=== PATIENT | male | born 1950 | race Caucasian/White ===

== ENCOUNTER 2023-03-06 08:50 | Inpatient (IN) | payer MEDICARE ==
[~2023-03-06] VITALS: Ht 175.3 cm; Wt 82.1 kg
[~2023-03-06 08:50] MED LIST: LOMOTIL TABLET1 EACH PO; ONDANSETRON HCL4 MG PO
--- OUTSIDE RECORDS SUMMARY | 2023-03-06 08:56 | XMS ---
PreManage Notification: YAHIR BLAIR Security Alterations Supervisor Events No recent Security Events currently on file CRITERIA MET - [facility] - 2 Visits in 30 Days CARE PROVIDERS YVONNE LAMBERT Physician Test Engineer Current PHONE: [phone] Silvana has no Care Guidelines for this patient. Ricki VISIT COUNT (12 MO.) 2 [facility] TOTAL 2 NOTE: Visits indicate total known visits. ED/UCC VISIT TRACKING (12 MO.) 03/06/2023 08:51 [facility] [place] TYPE: Emergency COMPLAINT: - ALTERED LOC 03/04/2023 17:29 [facility] [place] TYPE: Emergency COMPLAINT: - DIARRHEA INPATIENT VISIT TRACKING (12 MO.) No inpatient visits to display in this time frame [email or web address]
[2023-03-06 13:58] VITALS: BP 146/70
--- NOTE | 2023-03-06 14:36 | NUR ---
RECEIVED REPORT IN ED FROM [facility] TOWING PILOT AND RN ALDO FOR PT IN ROOM 6 AT 1120 HOURS (ED). PT TRANSFERRED TO ROOM 110 VIA ER STRETCHER BY 2-PERSONS (RN AND [facility] STUDENT) AT 1156 HOURS, ON 3L O2 VIA NC. PT ABLE TO STAND AND TRANSFER WITH SBA ONLY FROM STRETCHER TO BED WITHOUT DIFFICULTY. ASSESSMENT PERFORMED, ADMISSION DONE. MEAL TRAY AT BEDSIDE, PT ABLE TO EAT ABOUT 10%. PT UP TO TOILET, USED URINAL IN BATHROOM, VOIDED 275ML DARK CLEAR URINE. PT INITIALLY REPORTS LIGHTHEADEDNESS UPON STANDING BUT LATER STATES HE DOESN'T HAVE ANY. HE STATES HE GOT SICK THIS LAST SATURDAY AND WAS TAKEN TO URGENT CARE WHERE THEY GAVE HIM ABX AND PAIN PILLS. HE FEELS LIKE HE GOT WORSE AFTER THAT AND WAS BROUGHT IN BY EMS TODAY FOR CONFUSION AND WEAKNESS AND SLOW RESPONSE. PT LIVES AT HOME ALONE IN [place]. HIS SON LIVES IN [place]. HIS SISTER IS HIS MAIN POINT OF CONTACT AND SHE LIVES IN [place]. PT STATES HIS A COUPLE OF YEARS AGO. HE DENIES ANY ABNORMAL MED HX ASIDE FROM [facility] FOR WHICH HE HAS NOT SEEN A PROVIDER ABOUT AND CONTROLS IT WITH DIET. PT'S SON, WHILE ON THE PHONE, ADVISED THAT MAYBE A YEAR AGO, THE PT WAS SEEN AT [facility] AND WAS GIVEN IV ANTIBIOTICS WHEN HE BEGAN TO EXPERIENCE A REACTION. RECORDS WILL BE REQUESTED FROM [facility]. PT IS ON 3L O2 VIA NC TO MAINTAIN SATS GREATER THAN 89% AND STATES HE DOES NOT USE O2 AT HOME OR USE CPAP/BIPAP. FAMILY ON THE PHONE ADVISED THEY WILL BE IN TOMORROW TO VISIT AND THEIR NUMBERS ARE AVAIALBLE IF NEEDED. PT IS SUPINE IN BED, HOB AND KNEES ELEVATED FOR COMFORT, CALL LIGHT, CELL PHONE, AND BEDSIDE TABLE WITHIN REACH. PT EXPRESSED CONCERN ABOUT RECEIVING IV ABX HERE AND WAS ADVISED THAT THE PHYSICIAN IS AWARE AND ENCOURAGED TO USE THE CALL LIGHT IF HE NOTICES ANY CONCERNING SYMPTOMS.
--- NOTE | 2023-03-06 15:00 | NUR ---
Spoke with pt and he states he is retired and lives in [place] in a house a 3 steps. He does not have issues getting in or out of his home. He is a of 2 years. Pt's son lives in [place] and will assist him if needed. He does not use any DME. He cooks, cleans, shops for himself. He was in [place] visit when he became ill. He came to the ER on the 15 and was started on antibiotics. He believes this is what caused his pnuemonia. He plans on returning home to [place] when he is cleared medically. He does not think he has a pcp,but states he sees a Dr. at a Clinic in [place]. Pt denies needs and plans on dc on dc to home. He will call his son to take him home if he is not feeling well.
[2023-03-06 15:13] VITALS: BP 122/65
--- NOTE | 2023-03-06 15:32 | NUR ---
Called [facility] and [facility] in [place]. Both deny seeing this pt. They do not have any openings for follow up visits from a hospital until mid to end of April. There is another office in [place], Dr. Bourgeois office. They are closed today. Will call tomorrow to see if they have this pt.
--- NOTE | 2023-03-06 16:42 | NUR ---
SPOKE WITH PATIENT'S SISTER. PATIENT GIVES OK TO PROVIDE HER WITH INFORMATION. SISTER, KAYLEEN, STATES PATIENT HAS A HISTORY OF DRINKING ALCOHOL, THOUGH UNSURE OF [facility]. DR. MOE NOTIFED. MONITOR FOR WITHDRAWAL. DR. MOE STATES PATIENT INFORMED HIM IT HAS BEEN 1 WEEK SINCE LAST DRINK. PATIENT USES CALL LIGHT TO REQUEST BLANKETS. OXYGEN OFF. O2 SATS 86% ON ROOM AIR. OXYGEN REPLACED AT 3L/MIN PER NC. AFTER A COUPLE MINUTES, SATS INCREASE TO 90%.
--- NOTE | 2023-03-06 18:06 | NUR ---
PT USES CALL LIGHT APPROPRIATELY TO CALL FOR ASSISTANCE TO THE BATHROOM. PT NEEDS VERBAL CUES AND LINE/TUBE MANAGEMENT BUT IS ABLE TO AMBULATE WITHOUT ISSUES. VOIDED 300ML MEG COLORED, CLEAR, URINE INTO MALE URINAL. NO SOB OR C/O PAIN WITH AMBULATION. PT RECEIVING 500ML FLUID BOLUS OF LR PER EMAR AND RECEIVED UNISYN ABX IV. PT ASSISTED BACK TO BED, SCDS PLACED AND FUNCTIONING, BEDSIDE TABLE, CELL PHONE, AND CALL LIGHT WITHIN REACH. DENIES FURTHER NEEDS AT THIS TIME.
--- NOTE | 2023-03-06 18:09 | NUR ---
PT EXPRESSED CONCERN REGARDING THE FLUID BOLUS AND IV ABX HE RECEIVED. HE STATES HIS "CHEST FEELS FULL" AND COMMENTED THAT HE DOESN'T "WANT TO DROWN". PT SEEMS TO BE VERY ANXIOUS AND WORRIES ABOUT HAVING A REACTION TO IV ABX. REASSURED PT THAT WE ARE MONITORING HIM AND ENCOURAGED HIM TO CONTINUE USING HIS CALL LIGHT IF HE NOTICES ANY CHANGES OR ANYTHING UNUSUAL FOR HIMSELF. PT'S LUNGS AND AIRWAY WERE CLEAR, NO DYSPNEA, NO SOB, NO SWELLING NOTED ABOUT THE PT'S FACE, THROAT, OR ORAL CAVITY/TONGUE. CALL LIGHT AND BEDSIDE TABLE IN REACH, 2 OF 4 SIDE RAILS UP. PT REQUESTED SCDS STAY OFF FOR NOW. MEAL TRAY AT BEDSIDE, PT EATING DINNER. DENIES FURTHER NEEDS AT THIS TIME.
[2023-03-06 18:21] VITALS: BP 139/63
--- NOTE | 2023-03-06 18:22 | NUR ---
NEW BAG OF IV FLUIDS HUNG ON TUBING THAT IS GOOD UNTIL SATURDAY. VS DONE. PT IS COMPLAINING OF A HEADACHE IN THE RIGHT QUAKER BUT THINKS IT IS BECAUSE HE IS HAVING VISUAL CHANGES. HE STATES HE HAD CATARACT SURGERY A YEAR AGO AND HE HAD GREAT VISION THEN, NO GLASSES OR CONTACTS. SINCE HE GOT SICK OVER THIS LAST WEEKEND, HE HAS STARTED TO HAVE BLURRED VISION. PT WAS GIVEN A HOT PACK FOR HIS HEAD AND ADVISED WE WILL CHECK HIS EMAR FOR ANY MEDICATION FOR PAIN IF REQUESTED. HE RATES HIS HEADACHE A 9 OUT OF 10, INTERMITTENT. CALL LIGHT IN REACH.
--- NOTE | 2023-03-06 19:30 | NUR ---
REPORT RECEIVED FROM DAY SHIFT RN. PT RESTING IN BED. NO DISTRESS NOTED. PT ON 3 L NC OF O2. SATING IN LOW 90'S. SAFETY PRECAUTIONS MAINTAINED. CALL LIGHT THELMA GUARDADO. JANA CONTINUE TO MONITOR.
--- NOTE | 2023-03-06 20:15 | NUR ---
BED ALARM GOING OFF, pt FOUND AWAKE AND SITTING ON EDGE OF BED ATTEMPTING TO GET OOB TO GO TO THE BATHROOM. pt EDUCATED ON USING CALL LIGHT, pt UP SBA TO BATHROOM. pt VERBALIZED INTERST TO HAVE BM, UNSUCCESSFUL. pt BACK IN BED, ALARM RESUMED. pt STATES, "I'M HOT THEN I GET COLD, THEN HOT AGAIN". TEMP CHECKED, RESULT 97.9. 3LNC REMAINS IN PLACE, NO DISTRESS NOTED. CALL LIGHT IN REACH. PRIMARY RN UPDATED AND PULLING EVENING MEDS NOW.
--- NOTE | 2023-03-06 20:25 | NUR ---
PT ASSESSED AND MEDICATIONS GIVEN. PT STATED THAT THEY WERE ANXIOUS ABOUT BEING IN THE HOSPITAL. REASSURANCE EDUCATION DONE ABOUT PLAN OF CARE. CIWA DONE AND HAD A SCORE OF 2. IVF INFUSING. IV ABX GIVEN PER ORDER. IV SITE INTACT. VSS. I&O DONE. SAFETY PRECAUTIONS MAINTAINED. CALL LIGHT WITHIN REACH. WILL CONTINUE TO MONITOR.
[2023-03-06 20:26] VITALS: BP 124/60
--- NOTE | 2023-03-06 22:00 | NUR ---
CALL LIGHT ANSWERED. OXYGEN TUBING ADJUSTED, REDNESS BEHIND RIGHT EAR FROM TUBING. 3L OXYGEN BY NC IN PLACE. SBA TO STAND FOR VOID AT SIDE OF BED IN URINAL. pt REQUESTING TO KEEP JEANS ON. BACK IN BED. IVF INFUSING WNL. CALL LIGHT IN REACH. BED ALARM ON.
--- NOTE | 2023-03-07 00:11 | NUR ---
BED ALARM GOING OFF, pt UP SBA TO BATHROOM TO VOID AND BACK TO BED, STEADY ON FEET. VOIDED VIA URINAL, BED ALARM RESUMED AND CALL LIGHT IN REACH. 3LNC REMAISN IN PLACE, pt REPROTS PAIN R/T HEADACHE. COOL RAG APPLIED. PRIMARY RN UPDATED.
[2023-03-07 01:05] VITALS: BP 134/63
--- NOTE | 2023-03-07 01:40 | NUR ---
PHONE AT RN STATION ANSWERED, pt's SON YAHIR ON PHONE AND REPORTS THAT THE pt CALLED HIM AND MADE STATEMENTS SUCH "THEY'RE TRYING TO KILL ME" AND THAT THE pt REPORTS 10/10 PAIN R/T HEADACHE, RECENTLY GIVEN PRN TYLENOL BY PRIMARY RN. pt's SON REASSURED THAT THE pt WAS GIVEN TYLENOL AND IF HEADACHE CONTINUES, MD CAN BE CALLED FOR SOMETHING FOR PAIN AND/OR ANXIETY. SON STATES, "CAN'T YOU GIVE HIM SOME ATIVAN OR SOMETHING TO RELAX". THIS RN IN ROOM TO DISCUSS HEADACHE WITH pt AND THAT THE NURSE IS CALLING THE MD TO ASK FOR ADDITIONAL PAIN MEDS. pt EDUCATED THAT STAFF MUST GIVE WHAT IS AVAILABLE (THE TYLENOL) FIRST BEFORE CALLING MD. BED ALARM ON.PRIMARY RN ON PHONE WITH .
--- NOTE | 2023-03-07 01:55 | NUR ---
PT STATED THAT THEY HAVE A BAD NOYOLA. PRN TYLENOL GIVEN. PT STATED THAT IT WASN'T WORKING AND WANTED SOMETHING ELSE. PT CALLED THEIR SON, IMER, WHO LIVES IN [place] AND STATED THAT WE WERE TRYING TO KILL HIM. SONIMER CALLED AND TALKED TO PRIMARY RN AND SYSTEM SUPPORT ADMINISTRATOR VIA PHONE AND ASKED THAT WE CALL AND GET SOMETHING ADDITIONAL FOR PAIN. DR MOE CALLED AND NORDAMION AND SERORINA ORDERED. PT CALLED SONIMER, AGAIN STATING WE WERE NOT DOING ANYTHING FOR HIM. PT EDUCATED AND INFROMED THAT WE WERE IN TOUCH WITH THE DOCTOR AND GETTING SOMETHING FOR THEM. PT IS REFUSING OTHER INTERVENTIONS FOR THEIR NOYOLA AT THIS TIME. WAITING FOR MEDICATIONS TO BE VERIFIED. WILL CONTINUE TO MONITOR.
--- NOTE | 2023-03-07 02:00 | NUR ---
pt AWAKE AND RESTING IN BED, CONTINUES TO FEEL ANXIOUS AND REPORT HEADACHE. pt NOW ON PHONE WITH SON IMER, IMER ASKING ABOUT WHAT TYPE OF PNA pt HAS, SON EDUCATED pt DIAGNOSED WITH ASPIRATION PNA. pt REPORTS HE [place] AND WAS GIVEN NAUSEA MEDS AND STATES, "I HAVEN'T FELT THE SAME SINCE". SON STATES, "WELL HE WAS IN THE PASTURE CLEANING THE PEN, MAYBE HE BREATHED IN SOME DUST OR POOP". pt AND SON EDUCATED ASPIRATION PNA LIKELY OCCURS WHEN EATING OR DRINKING. ANSWERED pt's SON'S QUESTIONS REGARDING TREATMENT AND POC. pt ASKED IF HE HAS A PCP, pt DENIES INTEREST AND STATES, "OH I DON'T WANT THAT". pt EDUCATED THAT PCP CAN HELP WITH OVERALL HEALTH AND HELP WITH STRATEGIES PREVENTING ASPIRATION IN THE FUTURE. PRIMARY RN NOW IN ROOM TO GIVEN ADDITIONAL PAIN AND ANXIETY MEDICATION.
--- NOTE | 2023-03-07 02:13 | NUR ---
PRIMARY RN JUST GAVE PT THE ORDERED SEROQUEL AND NORCO. PT'S SON, IMER, ON THE PHONE WITH PT AND STATED THAT THE PT STATED THAT THE DOCTOR INFORMED HIM THAT HE WAS ABOUT TO MEET HIS MAKER. RN ASSURED SON AND PT THAT THIS WAS FALSE INFORMATION AND THAT THE PT NEEDED TO SEE A PRIMARY DOCTOR ( THE PT STATED THAT THEY DID NOT WANT TO SEE ONE) TO ADDRESS SOME OF HIS HEALTH ISSUES AND CONCERNS. SON, IMER, VERBALIZED UNDERSTANDING.
--- NOTE | 2023-03-07 03:08 | NUR ---
PT RESTING WITH EYES CLOSED. NO DISTRESS NOTED. PT'S SON, IMER, CALLED ANF UPDATED ON PT'S STATUS. SAFETY PRECAUTIONS MAINTAINED. CALL LIGHT WITHIN REACH. WILL CONTINUE TO MONITOR.
[2023-03-07 05:21] VITALS: BP 142/62
--- NOTE | 2023-03-07 05:40 | NUR ---
pt SLEEPING, AWAKENS TO VOICE FOR LAB. pt DROWSY. 1PA TO STAND AT SIDE OF BED FOR VOID IN URINAL. IVF INFUSING WNL. pt BACK IN BED. ICE WATER REFILLED AND IN REACH. CALL LIGHT NEXT TO pt. 3L OXYGEN IN PLACE. SPO2 WNL. VSS. BED ALARM ON. pt COOPERATIVE WITH CARES.
--- NOTE | 2023-03-07 06:31 | NUR ---
PT WAS RESTLESS AND ANXIOUS FOR MOST OF THE SHIFT. PLEASE SEE PREVIOUS NOTES FOR UPDATES ON PT AND FAMILY INTERACTION THROUGHOUT SHIFT. PT ABLE TO AMBULATE TO BATHROOM WITH CONTACT ASSISTENCE. O2 AT 3L NC REMAINED APPLIED TO PT THROUGHOUT SHIFT. VSS. IVF INFUSING PER ORDER. SAFETY PRECAUTIONS MAINTAINED. CALL LIGHT WITHIN REACH. WILL CONTINUE TO MONITOR.
--- NOTE | 2023-03-07 06:54 | NUR ---
pt's SISTER KAYLEEN BLAIR CALLED AND ASKED FOR pt UPDATE. pt ASKED IF UPDATE COULD BE PROVIDED, pt OKAY'ED. PRIMARY RN SPEAKING WITH pt's SISTER NOW VIA PHONE.
--- NOTE | 2023-03-07 07:00 | NUR ---
PT'S SISTER, KAYLEEN, CALLED FOR AN UPDATE ON PT. PT GAVE PERMISSION FOR RN TO TALK TO KAYLEEN AND GIVE UPDATES. RN UPDATED KAYLEEN ON SHIFT EVENTS. KAYLEEN VERBALIZED UNDERSTANDING.
[2023-03-07 07:59] VITALS: BP 132/65
--- NOTE | 2023-03-07 08:01 | NUR ---
RECEIVED REPORT FROM NOC SHIFT RN. PT SUPINE IN BED, HOB ELEVATED, RESTING WITH EYES OPEN. PT REPORTS HEADACHED 10 OUT OF 10, STATES THAT HE STILL DOESN'T FEEL GOOD. PT'S FAMILY SHOULD BE ARRIVING TODAY TO VISIT. UNASYN IV HANGING AND STARTED. PT REQUESTS A NEW WATER CUP HE THINKS HIS IS LEAKING. PERSONAL BELONGINGS, BEDSIDE TABLE, AND CALL LIGHT IN REACH. NO OTHER NEEDS AT THIS TIME.
--- NOTE | 2023-03-07 08:40 | NUR ---
Pt. Feikes head, "no",when asked if he has any needs. Pt making a phone call.
--- NOTE | 2023-03-07 09:18 | NUR ---
PT IS NOW ON ACCUCHECKS AND SLIDING SCALE. BREAKFAST TRAY AT BEDSIDE. PT CBG IS 220, HE REFUSED 3 UNITS OF INSULIN, STATING HE DOESN'T NEED IT AT HOME BECAUSE HE CONTROLS HIS DIET AND DOESN'T EAT SUGARY STUFF OR A LOT OF CARBS, AND HE SKIPS BREAKFAST. PT WAS ENCOURAGED TO GET OUT OF BED TODAY AND MOVE AROUND/TAKE WALKS WITH STAFF TO ENCOURAGE AMBULATION AND HEALING. PT VERBALIZED UNDERSTANDING. PT WAS GIVEN HIS 0900 PO ABX, AND 500MG ACETAMINOPHEN FOR 10/10 HEADACHE IN THE RIGHT PENTECOSTAL. [facility] MICROFILMING DOCUMENT PREPARER, CARRIE, BROUGHT THE PATIENT SOME COLD GREEN TEA AT HIS REQUEST, INSTEAD OF HIS COFFEE WITH BREAKFAST. CALL LIGHT IN REACH, PT DENIES FURTHER NEEDS AT THIS TIME.
[2023-03-07 09:55] VITALS: BP 130/64
--- NOTE | 2023-03-07 10:41 | NUR ---
Pt's O2 was 86% on 3 liters nasal cannula. This student nurse spoke with charge nurse Adrienne who recommended increasing his O2 to 4 lpm which was done. See vitals for response.
--- NOTE | 2023-03-07 11:45 | NUR ---
MED REC COMPLETE
--- NOTE | 2023-03-07 11:52 | NUR ---
HOURLY ROUNDING ON PT. RESTING IN BED WITH EYES CLOSED, PT'S SON AT BEDSIDE. ANSWERED QUESTIONS AND ENCOURAGED PT'S SON AND PT TO DISCUSS CONCERNS WITH DR. MOE WHEN HE COMES IN. PT REPORTS HE STILL HAS PAIN 10 OUT OF 10 IN HIS RIGHT YARSANI, COOL COMPRESS GIVEN. SON EXPRESSED CONCERN ABOUT THE NEED FOR AN MRI OR OTHER DIAGNOSTIC IMAGING TO LOOK FOR ANEURYSMS. YVONNE COKER ASSISTED PT TO CHAIR FROM BED, STATES HE FEELS WARM. CBG 344. CALL LIGHT IN REACH.
--- NOTE | 2023-03-07 12:36 | NUR ---
PT UP IN CHAIR, SON AT BEDSIDE. MEAL TRAY IN ROOM. PT ADVISED THAT HIS CBG WAS 344 THIS TIME AND HE STATED HE DOES NOT WANT INSULIN STILL BUT THAT HE WILL GO FOR WALKS TO HELP LOWER HIS BLOOD GLUCOSE. THE PT WAS ON AND HAD A REGULAR DIET TRAY THIS MORNING FOR BREAKFAST BUT IS NOW, FOR LUNCH, ON A 60G CARB DIET. PT WAS RE-EDUCATED ON THE IMPORTANCE OF FOLLOWING INSTRUCTIONS TO USE THE IS AND ACAPELLA, STAYING HYDRATED, AND GETTING PLENTY OF SLEEP. PT VERBALIZED UNDERSTANDING. PT EXPRESSED DESIRE TO AMBULATE THE HALLWAYS TO HELP LOWER HIS CBG. PORTABLE O2 TAKEN WITH PT BY RN, PT TOLERATED WALK WELL, AND WENT BACK TO HIS CHAIR, LLE ON PILLOW. CALL LIGHT IN REACH
--- NOTE | 2023-03-07 12:57 | NUR ---
DR. MOE IN WITH PT AT 1243, SON HAD STEPPED OUT TO ENTERPRISE APPLICATION ARCHITECT PT'S MOTHER. PT UP IN CHAIR. PT WAS ADVISED THAT HIS BLURRY VISION MAY BE FROM HIS DIABETES AND WAS ENCOURAGED TO TAKE INSULIN IF HE IS WILLING, WHILE HE IS IN THE HOSPITAL. PT WOULD LIKE TO SPEAK WITH HIS SON ABOUT IT FIRST. WILL ADVISE HIS SON OF DR. MOE'S ANSWERS REGARDING HEADACHE (POSSIBLE SINUS INFECTION). PT LEGS ELEVATED IN CHAIR FOR COMFORT. PT ATE APPROX 10% OF HIS LUNCH AND COMPLAINED THAT IT HAS TOO MANY CARBS FOR HIS LIKING, AND THAT HE SOMETIMES EATS ONLY 20G OF CARBS A DAY. CALL LIGHT IN REACH, DENIES FURTHER NEEDS AT THIS TIME. PER DR. MOE, WILL S/L PT AFTER THIS BAG OF FLUIDS RUNS THROUGH.
--- NOTE | 2023-03-07 14:00 | NUR ---
BRUSH MAKER MACHINE UTE. NOTIFIES THIS NURSE PATIENT IS BLEEDING FROM IV SITE. UPON ENTERING ROOM, PATIENT AMBULATING WITHOUT ASSISTANCE, BLOOD DROPLETS NOTED ON THE FLOOR. IV CATHETER REMAINS INTACT, DRESSING INTACT. APPEARS PATIENT PULLED IV TUBING APART AND WAS BLEEDING THROUGH TUBING ONTO FLOOR. NO OXYGEN ON AT THIS TIME. STATES HE NEEDS TO URINATE. OXYGEN REPLACED, AMBULATES TO BATHROOM WITH BRUSH MAKER MACHINE. IV TUBING DISCONNECTED AND SITE FLUSHED WITH 10 ML NS. NEW TUBING CONNECTED TO IVF. PATIENT RETURNS TO RECLINER, CHAIR ALARM ACTIVATED. IV FLUIDS RESTARTED.
--- NOTE | 2023-03-07 14:31 | NUR ---
M/S STAFF IN CARING FOR PT AT THIS TIME. WILL CHECK BACK
--- NOTE | 2023-03-07 15:41 | NUR ---
AMBULATED IN HALLWAY WITH OXYGEN. O2 SATS DOWN TO 89% ON 4L/MIN PER NC. RT WITH PATIENT WELL. OXYGEN INCREASED TO 5L/MIN PER NC WITH AMBULATION. RETURNS TO ROOM TO BED. SON REQUESTS PATIENT HAVE SUDAFED, INFORMED DOSE WAS GIVEN AN HOUR AGO AND MAY BE GIVEN 6 HOURS FROM THAT DOSE. VERBALIZE UNDERSTANDING.
[2023-03-07 16:07] VITALS: BP 120/56
--- NOTE | 2023-03-07 18:54 | NUR ---
PT HAS BEEN UP IN THE CHAIR FOR MOST OF THIS SHIFT. HE ATE ABOUT 50% OF HIS BREAKFAST, AND ABOUT 25% OF HIS LUNCH. HE C/O THE AMOUNT OF CARBS IN HIS MEALS AND HAS BEEN REFUSING HIS SLIDING SCALE INSULIN STATING THAT "THAT STUFF KILLS YOU". HE HAS BEEN REQUESTING TO USE HIS PERSONAL LANCETS AND WAS TOLD THAT WE MUST USE OUR MONITORS. HE REPORTED PAIN 10 OUT OF 10 THIS MORNING IN THE FORM OF A HEADACHE ON THE RIGHT SIDE OF HIS HEAD (LATER DETERMINED, BY DR. MOE, TO BE A SINUS INFECTION) AND WAS GIVEN TYLENOL AND 30MG PRN SUDAFED. 2 HOURS LATER HE REPORTED HIS PAIN "I DON'T KNOW, A 9?" WHEN ASKED IF IT WAS STILL A 9, HE SAID, "I DON'T KNOW, I DON'T REALLY FEEL ANY PAIN RIGHT NOW". I CONFIRMED, "YOU DON'T HAVE ANY PAIN RIGHT NOW?" AND HE SAID, "NO." HIS SON AND MOTHER HAVE BEEN IN HIS ROOM FOR MOST OF THE DAY AND HAVE BEEN ENCOURAGING HIM TO USE HIS INCENTIVE SPIROMETER. HE HAS BEEN AMBULATING THE HALLWAYS WITH 1-PERSON ASSIST X2 TODAY AND HIS O2 SATS RANGE (WHILE WALKING WITH O2 AT 4LPM) FROM 89-92%. HE IS ON HUMIDIFIED O2 NOW PER DR. MOE, FOR CONGESTION. PT STILL SEEMS PRETTY ANXIOUS AND WAS ENCOURAGED TO PARTICIPATE IN HIS HEALING BY USING THE IS, AMBULATING, USING THE ACAPELLA, AND FOLLOWING DIRECTIONS (EATING WELL, HYDRATING, GETTING SLEEP, RATING PAIN) IN ORDER TO BE DISCHARGED SOON HE CAN BE. PT HAS BEEN SLEEPING FOR THE LAST 3 HOURS.
--- NOTE | 2023-03-07 19:15 | NUR ---
REPORT RECEIVED FROM DODIE BREEN. PT RESTING IN BED WITH EYES CLOSED RR EVEN AND UNLABORED. NO NEEDS IDENTIFIED AT THIS TIME. CALL LIGHT IN REACH. BED ALARM ON.
--- NOTE | 2023-03-07 20:39 | NUR ---
SON IMER IN ROOM AND ASSISTED WITH MAKING THE BED HE PLANS ON STAYING THE NIGHT WITH HIS FATHER. POC DISCUSSED WITH IMER, PRIMARY RN RENA ALSO IN ROOM COMPLETING MED PASS. NO ADDITIONAL NEEDS OR CONCERNS VERBALIZED. CALL LIGHT IN REACH.
[2023-03-07 20:45] VITALS: BP 141/75
--- NOTE | 2023-03-07 20:56 | NUR ---
IN TO ADMINISTER MEDICAITONS, SEE MAR. PT TOLERATED SUB-Q INJECTION WELL. PT RESTING IN BED AND RESPONDS WHEN ADDRESSED. SON IN ROOM TO VISIT. VITLAS AND I&Os COMPLETE. ASSESSMENT COMPLETE. LUNG SOUNDS CLEAR IN RUL, ELIZABETH AND LLL. DIMINISHED IN RLL. BOWEL TONES ACTIVE. PT DENIES PAIN AT THIS TIME. PT REQUESTING MILK. MILK PROVIDED. LOTION TO PTs BACK PT REPORTING BACK BEING ITCHY. SON REQUESTING CHAP STICK FOR PT. WILL RETURN WITH CHAP STICK. PT REQUESTING WATER, WILL RETRUN WITH WATER. PT IN BED WITH BED ALARM ON. CALL LIGHT IN REACH.
--- NOTE | 2023-03-07 21:44 | NUR ---
PT STATES HE HAS A 10/10 NOYOLA, PRESSURE. PAIN MED AND CONGESTION MED PROVIDED. NO OTHER NEEDS AT THIS TIME. SON IN ROOM. CALL LIGHT IN REACH.
--- NOTE | 2023-03-07 22:28 | NUR ---
IN TO ROUND ON PT. YVONNE DUARTE IN ROOM ASSISTING PT WITH TOILETING. PT REPORTING BACK FEELING "ITCHY." PT REQUESTING PRN BENADRYL. WILL CALL
--- NOTE | 2023-03-07 22:31 | NUR ---
Assisted Pt with going to and from the bathroom and using the bathroom. Pt noted red itchy spots on back; notified RN. Repositoned Pt in bed with RN. Refilled Pt's ice pack and water with fresh ice. Call light left in reach; bed alarm on. No other needs expressed by Pt.
--- NOTE | 2023-03-07 22:33 | NUR ---
THIS RN CALLED DR. BURGESS REGARDING PT REQUESTING BENADRYL PTs BACK IS "ITCHY." NEW ORDERS RECEIVED VERIFIED WITH READ BACK. ORDER 25MG BENADRYL PO ONCE. GIVE 12.5MG NOW AND IF NEEDED OKAY TO GIVE OTHER 12.5MG.
--- NOTE | 2023-03-07 22:53 | NUR ---
BENADRYL TABLETS NOT AVAILABLE, ONLY CAPSULES. DR BURGESS UPDATED, PER MD, VERBAL ORDER READ BACK OKAY TO GIVE THE FULL 25MG PO BENADRYL CAPSULE. PRIMARY RN SANDRITA UPDATED.
--- NOTE | 2023-03-07 22:54 | NUR ---
IN TO ADMINISTER BENADRYL, SEE MAR. PT TAKES PO MEDICATION WITH NO ISSUES. PT DENIES ANY OTHER NEEDS AT THIS TIME. CALL LIGHT IN REACH. BED ALARM ON. SON ON COUCH.
--- NOTE | 2023-03-07 23:50 | NUR ---
THIS RN WAS INFORMED PTs SON CAME TO NURSES STATION TO ASK ABOUT PTs HOB BEING LOWERED. THIS RN IN ROOM TO ROUND ON PT. HOB LOWERED. PT REPORTING HEADACHE AND RATING PAIN 10/10. PT REQUESTING PRN PSEUDOEPHEDRINE. PRN PSEUDOEPHEDRINE AND MOTRIN ADMINISTERED, SEE MAR. PT DENIES ANY OTHER NEEDS AT THIS TIME. CALL LIGHT IN REACH. BED ALARM ON. SON IN ROOM. SON AND PT EDUCATED PERSONNEL CONSULTANT LIGHT USE.
--- NOTE | 2023-03-08 01:01 | NUR ---
SON ON COUCH. SON SITS UP WHEN DOOR OPENS. NO NEEDS REPORTED AT THIS TIME. CALL LIGHT IN REACH. BED ALARM ON.
--- NOTE | 2023-03-08 01:15 | NUR ---
SON TO NURSES STATION. SON REPORTS PT IS MOVING AROUND IN BED AND IS "UNCOMFORTABLE." IN WITH YVONNE MCKEON TO BOOST PT IN BED. PT REPOSITIONED. WARM CLOTH PROVIDED FOR PTs EYES. PRN SEROQUEL ADMINISTERED, SEE MAR. PER PT REQUEST. ABX STARTED, SEE MAR. PT DENIES ANY OTHER NEEDS AT THIS TIME. CALL LIGHT IN REACH. BED ALARM ON.
--- NOTE | 2023-03-08 02:11 | NUR ---
IN PUMP ALARMING, RESOLVED. IV ABX COMPLETE. PT SL. PT RESTING IN BED SEMI-FOWLERS. RR EVEN AND UNLABORED. EYES CLOSED. PT ALLOWED TO REST AT THIS TIME. CALL LIGHT IN REACH. NO OTHER NEEDS IDENTIFIED AT THIS TIME. SON ON COUCH. BED ALARM ON.
--- NOTE | 2023-03-08 04:21 | NUR ---
SON ON COUCH. NO NEEDS IDENTIFIED AT THIS TIME. CALL LIGHT IN REACH OF PT. BED ALARM ON.
[2023-03-08 05:45] VITALS: BP 146/72
--- NOTE | 2023-03-08 05:45 | NUR ---
IN BED ALARM ALARMING. PT SITTING ON EDGE OF BED. PT REPORTS TOILETING NEEDS. SBA FROM BED TO RESTROOM AND BACK TO BED. PT HAS SLOW STEADY GAIT. LINENS ON BED CHANGED. NEW GOWN PROVIDED. VITALS AND I&Os COMPLETE. ASSESSMENT COMPLETE. LUNG SOUNDS CLEAR IN RUL AND ELIZABETH. DIMINISHED IN RLL. COARSE IN RLL. BOWEL TONES ACTIVE. HEART RATE TACHYCARDIC. PT DENIES PAIN AT THIS TIME. PT REQUESTING ICE. ICE PROVIDED. PT DENIES ANY OTHER NEEDS AT THIS TIME. CALL LIGHT IN REACH. BED ALARM ON. SON ON COUCH.
[2023-03-08 07:30] VITALS: BP 137/75
--- NOTE | 2023-03-08 08:00 | NUR ---
REPORT RECEIVED FROM NIGHT RN AND PT. CARE RESUMED. PT. C/O SINUS PAIN AND ADMIN. PRN. MED. ON 4L O2 NC AND SP02 IS 92%. SON AT BEDSIDE. ASSESSMENT COMPLETED AND MEDS ADMIN. CALL LIGHT IN REACH.
[2023-03-08 09:53] VITALS: BP 128/67
--- NOTE | 2023-03-08 09:53 | NUR ---
SPOKE TO PATIENT ABOUT THIS DISCHARGE PLAN. PATIENT PLANS TO GO HOME TO [place] WHERE HE LIVES.PATIENT HAS A SON IMER THAT WILL HELP IF NEEDED.
--- NOTE | 2023-03-08 10:56 | NUR ---
STAFF IN WORKING WITH PT, WILL CHECK AGAIN.
[2023-03-08] MEDS ORDERED: REFRESH OPTIVE1 EAC2 OU (11:19)
--- NOTE | 2023-03-08 11:25 | NUR ---
PT. SON BROUGHT PT'S EYE DROPS AND YOGURT. YOGURT LABELED AND IN FRIDGE. EYE DROPS GIVEN TO PHARMACY FOR LABELING.
--- NOTE | 2023-03-08 11:53 | NUR ---
PT. C/O CONTINUED HEADACHE AND ADMIN. PRN MED. WILL CONTINUE TO MONITOR.
[2023-03-08 13:44] VITALS: BP 126/70
--- NOTE | 2023-03-08 13:49 | NUR ---
PT I&O'S TAKEN/DOCUMENTED. WATER REFILLED, PT IN CHAIR, LEGS DANLGED, CALL LIGHT ON ARM REST. NO OTHER NEEDS AT THIS TIME.
--- NOTE | 2023-03-08 14:26 | NUR ---
PT CONCERNED IV SITE "LOOKED DIRTY" UNDER DRESSING. SITE WNL. PT THEN CONCERNED TUBING KINKING. TUBING TAPED DOWN. DENIES FURTHER NEEDS.
[2023-03-08 18:26] VITALS: BP 156/72
--- NOTE | 2023-03-08 19:05 | NUR ---
REPORT RECEIVED FROM DODIE VELAZQUEZ. PT RESTING IN BED LAYING SEMI-FOWLERS. EYES CLOSED. RR EVEN AND UNLABORED. PT AWAKENS WHEN DOOR OPENS. PT DENIES ANY NEEDS AT THIS TIME. CALL LIGHT IN REACH. BED ALARM ON.
--- NOTE | 2023-03-08 19:27 | NUR ---
pt walked to the bathroom, sba, w/o difficulty. this rn remains in room. back in bed. call light in reach. denies further needs.
--- NOTE | 2023-03-08 20:12 | NUR ---
IN TO ROUND ON PT. BG CHECK. PT REFUSES INSULIN. PT REQUESTING TO GO FOR WALK. IV ABX COMPLETE. PT SL. PT GETS UP FROM BED BY SELF AND AMBULATES REDDING. KEESHA RN AMBULATES LAMBERT WITH PT. SON ACCOMPANIES PT. NO OTHER NEEDS FROM THIS RN AT THIS TIME.
[2023-03-08 20:29] VITALS: BP 139/65
--- NOTE | 2023-03-08 20:56 | NUR ---
IN TO ROUND ON PT. DODIE THAO IN [facility] PT ASSISTING PT TO BED. PT REPORTING HEADACHE 07/30. PRN MOTRIN ADMINISTERED, SEE MAR. PT TAKES PO MEDICAITON WITH NO ISSUES. ASSESSMENT COMPLETE. LUNG SOUNDS CLEAR IN RUL AND ELIZABETH. DIMINISHED IN RLL AND LLL. COARSE IN LLL. BOWEL TONES ACTIVE. PT REQUESTING TO USE EYE DROPS. EYE DROPS ADMINISTERED, SEE MAR. PT REQUESTING COOL CLOTH. COOL CLOTH PROVIDED FOR PTs FOREHEAD. PT REQUESTING PILLOW. PILLOW PROVIDED. ASKED PT WHAT THE DATE IS PT STATES "THE ." INFORMED PT IT IS THE . ASKED PT WHAT MONTH IT IS PT STATES "DECEMBER." INFORMED PT IT IS FEBRUARY. ASKED PT WHAT YEAR IT IS PT STATES "." ASKED PT WHY THE PT IS IN THE HOSPITAL PT STATES "I HAD STOMACH PROBLEMS." PT A&O TO SELF. PT DENIES ANY OTHER NEEDS AT THIS TIME. CALL LIGHT IN REACH.
--- NOTE | 2023-03-08 22:45 | NUR ---
IN BED ALARM ALARMING, RESOLVED. PT REQUESTING TOILETING. SPOT CHECK PTs O2 SATS. PT SITTING ON EDGE OF BED AND O2 SATS AT 85% ON RA. PLACED 2L OF O2 VIA NC ON PT. PT AMBULATES TO RESTROOM AND BACK TO BED. O2 SATS AT 85% ON 2L NC. INCREASED TO 3L NC. PT RECOVERS AND O2 SATS INCREASE TO 94% ON 3L AND MAINTAIN. TITRATED PT TO 1L NC. PT MAINTAINS AT 90% ON 1L NC. EDUCATED PT ON O2 AND USE OF IS OR ACAPELLA. PT AND SON VERBALIZE UNDERSTANDING. COOL CLOTH PROVIDED FOR PT. FAN PROVIDED FOR PT. PT REFUSES SCDs. PT DENIES ANY OTHER NEEDS AT THIS TIME. CALL LIGHT IN REACH. BED ALARM ON. SON IN ROOM.
--- NOTE | 2023-03-09 01:06 | NUR ---
IN TO ROUND ON PT. PT RESTING IN BED AND LOOKDS OVER AT DOOR WHEN DOOR OPENS. DODIE THAO IN TO ASSIST WITH BOOSTING PT UP IN BED. ASKED PT IF PT IS HAVING ANY PAIN AND PT STATES "I DO NO KNOW." ASKED PT IT PT STILL HAS A HEADACHE AND PT STATES "NO." INFORMED PT TO USE CALL LIGHT IF PT DECIDES ON PAIN MEDICATION. PT DENIES ANY OTHER NEEDS AT THIS TIME. CALL LIGHT IN REACH. BED ALARM ON. SON IN ROOM.
--- NOTE | 2023-03-09 02:01 | NUR ---
IN TO ADMINISTER ABX, SEE MAR. PT RESTING IN BED. PT AWAKENS WHEN DOOR IS OPEN. RR EVEN AND UNLABORED. IV ABX STARTED, SEE MAR. PT DENIES ANY NEEDS AT THIS TIME. CALL LIGHT IN REACH. BED ALARM ON. SON ON COUCH.
--- NOTE | 2023-03-09 02:46 | NUR ---
IN IV PUMP ALARING, RESOLVED. IV ABX COMPLETE. PT SL. PT RESTING IN BED SEMI-FOWLERS. RR EVEN AND UNLABORED. PT AWAKENS WHEN BEING DISCONNECTED FROM PUMP AND THEN CLOSES EYES AGAIN. NO NEEDS IDENTIFIED AT THIS TIME. CALL LIGHT IN REACH. BED ALARM ON. SON ON COUCH.
--- NOTE | 2023-03-09 03:08 | NUR ---
IN TO ANSWER CALL LIGHT. PT REQUESTING TOILETING. SBA FROM BED TO RESTROOM AND BACK TO BED. O2 SATS AT 84% ON 2L NC WHEN PT IS SITTING IN BED AFTER AMBULATING. PT USES ACAPELLA AND O2 SATS INCREASE TO 92%. TITRATED PT BACK TO 1L NC AND PT MAINTAINS AT 90% ON 1L O2 VIA NC. PT LAYS BACK IN BED. PT STATES "I WANT TO TALK WITH THE DOCTOR TODAY, I THOUGHT I WAS SUPPOSED TO BE OFF O2 AND I AM SUPPOSED TO GO HOME TODAY." EDUCATED PT ON O2 AND USE OF ACAPELLA. INFORMED PT THE MD WILL BE IN TO SEE HIM TODAY. PT VERBALIZES UNDERSTANDING. ASSESSMENT COMPLETE. LUNG SOUNDS CLEAR IN RUL AND ELIZABETH. DIMINISHED IN RLL AND LLL. COARSE IN LLL. PT DENIES PAIN AT THIS TIME. BOWEL TONES ACTIVE. PT REQUESTING ICE WATER. ICE WATER PROVIDED. PT DENIES ANY OTHER NEEDS AT THIS TIME. CALL LIGHT IN REACH. BED ALARM ON.
--- NOTE | 2023-03-09 05:04 | NUR ---
PT'S SON, IMER, CAME TO THE NURSES STATION STATING THAT HIS HAD WANTS THE OXYGEN VIA NC TAKEN OFF. PT IS ON 1L NS TO KEEP HIS SATS ABOVE 90%. SAT READING WITH 1L NC WAS 91%. PT WAS VERY INSISTENT ON REFUSING ANYMORE OXYGEN STATING IT WAS KILLING HIM. OXYGEN WAS REMOVED PER PT REQUEST. EDUCATION WAS GIVEN ON THE NEED FOR OXYGEN AND IT PURPOSE. PT STILL REFUSED TO HAVE IT. PULSE OX LEFT ON PT FINGER TO MONITOR O2 LEVELS. WILL CONTINUE TO MONITOR.
[2023-03-09 05:21] VITALS: BP 145/69
--- NOTE | 2023-03-09 05:37 | NUR ---
PT REQUESTED TO AMBULATE IN THE HALLS. THIS RN WALKED PT ON A COMPLETE CIRCUIT DOWN THE LAMBERT TO CRITICAL CARE AND BACK AROUND TO THE PT'S ROOM. HIS OXYGEN SATURATION AFTER THE WALK WAS 89 % PULSE WAS 112. PT IS REFUSING SUPPLEMENTAL OXYGEN.
--- NOTE | 2023-03-09 06:08 | NUR ---
IN TO ANSWER CALL LIGHT. PT REPORTS WANTING TO TALK TO THE DOCTOR. INFORMED PT THIS RN WOULD LET THE DOCTOR KNOW PT WOULD LIKE TO TALK WITH HIM. PT ALSO REQUESTING SOMETHING FOR ANXIETY. ASKED PT IF PT TAKES ANY MEDICATIONS FOR ANXIETY AT HOME. PT STATES "NO." INFORMED PT THIS RN WILL CALL DOCTOR AND ASK. PT DENIES ANY OTHER NEEDS AT THIS TIME. CALL LIGHT IN REACH. BED ALARM ON.
--- NOTE | 2023-03-09 06:11 | NUR ---
THIS RN CALLED DR. BURGESS TO UPDATE HIM ON PT. AND PTs REQUEST FOR MEDICATION FOR ANXIETY. NEW ORDER RECEIVED FOR ATIVAN 0.5MG PO ONCE. VERIFIED WITH READ BACK.
--- NOTE | 2023-03-09 06:32 | NUR ---
IN TO ADMINISTER ONCE TIME DOSE OF ATIVAN, SEE MAR. PT TAKES PO MEDICATION WITH NO ISSUES. PT REPORTING PAIN 10/10 HEADACHE. OFFERED PSEUDOEPHEDRINE AND PRN PAIN MEDICATION. PT ACCEPTS. WILL RETURN WITH PRN MEDICATIONS AND WATER. NO OTHER NEEDS AT THIS TIME. CALL LIGHT IN REACH. BED ALARM ON.
--- NOTE | 2023-03-09 06:43 | NUR ---
IN WITH PRN PAIN MEDICATION PT IS REQUESTING. PRN PAIN MEDICATION AND PSEUDOPHEDRINE ADMINISTERED, SEE MAR. PT TAKES PO MEDICATION WITH NO ISSUES. ICE WATER PROVIDED. COOL CLOTH TO PTS FOREHEAD. PT DENIES ANY OTHER NEEDS AT THIS TIME. CALL LIGHT IN REACH. BED ALARM ON. SON IN ROOM.
--- NOTE | 2023-03-09 07:46 | NUR ---
patient up to restroom before breakfast, SBA, patient also refused acu check. family in room. call light within reach.
[2023-03-09 09:39] VITALS: BP 139/61
--- NOTE | 2023-03-09 10:18 | NUR ---
Dr. Beauchamp in consulting with patient.
--- NOTE | 2023-03-09 12:15 | NUR ---
Patient ambulated in hallway with his son, tolerated very well. Patient has no notable distress.
[2023-03-09] MEDS ORDERED: AMOX TR-K CLV1 EAC1 PO (14:00)
[2023-03-09] MEDS ORDERED: GAS RELIEF80 MG PO (14:01)
[2023-03-09 14:30] VITALS: BP 152/73
== END 2023-03-09 15:20 | disposition home or self-care (01) | DRG 177 ==
LOC: ED 08:50 → MS 10:57
PROVIDERS: ADMIT Internal Medicine; ATTEND Family Medicine
DX: J15.6 Pneumonia due to other Gram-negative bacteria (principal); J96.01 Acute respiratory failure with hypoxia; N17.9 Acute kidney failure, unspecified; Z20.822 Contact with and (suspected) exposure to COVID-19; E87.1 Hypo-osmolality and hyponatremia; N18.9 Chronic kidney disease, unspecified; E11.22 Type 2 diabetes mellitus with diabetic chronic kidney disease; R14.0 Abdominal distension (gaseous); D69.59 Other secondary thrombocytopenia; E11.65 Type 2 diabetes mellitus with hyperglycemia; E86.1 Hypovolemia; Z99.81 Dependence on supplemental oxygen; Z88.2 Allergy status to sulfonamides; Z79.899 Other long term (current) drug therapy
CPT/HCPCS: 36415; 71045; 74018; 80048; 80053; 83036; 85025; 87070; 87205; 87502; 94667; 94760; 94761; A9270; J0295; J0456; J1815; J7040; J7121; U0003